=== PATIENT | male | born 1985 | race Caucasian/White ===

== ENCOUNTER 2016-09-27 20:52 | Emergency (ER) | payer OTHER ==
[~2016-09-27] VITALS: Ht 170.2 cm; Wt 78.0 kg
[~2016-09-27 20:52] MED LIST: METH10CO PO; MTR600 PO
[2016-09-27 21:11] VITALS: TEMP 36.9; Ht 170.2 cm; Wt 78.0 kg
[2016-09-27] MEDS ORDERED: ZNTT/150 PO (22:03)
[2016-09-27 22:11] VITALS: O2SAT 95
[2016-09-27] MEDS ORDERED: LORAZEPAM 2 MG/ML 1 ML VIAL IV STA (22:14)
--- NOTE | 2016-09-27 22:27 | DIAGNOSTIC IMAGING REPORT ---
CHEST ONE VIEW PORTABLE CLINICAL HISTORY: B11A - Abnormal EKG chest pain COMPARISON STUDY: 12/17/2015 FINDINGS: The bones soft tissues and hemidiaphragms are normal. The cardiomediastinal silhouette is normal. The lungs are clear. The pulmonary vasculature is normal. IMPRESSION: Negative chest. Electronically signed by: Moise Armendariz M.D. 09/27/2016 10:26 PM Dictated Date/Time: 09/27/2016 10:26 PM
[2016-09-27 22:53] LABS: HEMATOCRIT 38.7 % (42-52); MEAN CELL VOLUME 83.2 fL (80-100); MEAN CORPUSCULAR HEMOGLOBIN 29.5 pg (25-34); MEAN CORPUSCULAR HGB CONC 35.4 g/dl (32-36); MEAN PLATELET VOLUME 9.6 fL (7.4-10.4); PLATELET COUNT 177 K/uL (130-400); RED BLOOD COUNT 4.65 M/uL (4.7-6.1); WHITE BLOOD COUNT 6.18 K/uL (4.8-10.8)
[2016-09-27 23:03] LABS: INR 0.9 (0.9-1.1)
[2016-09-27 23:06] LABS: BUN/CREATININE RATIO 14.5 (10-20); CALCIUM 8.4 mg/dl (8.5-10.1); CREATININE 0.89 mg/dl (0.60-1.40); POTASSIUM 3.8 mmol/L (3.5-5.1)
[2016-09-27 23:11] LABS: ALB/GLOB RATIO 1.5 (0.9-2)
[2016-09-28] MEDS ORDERED: ATIVAN 1MG HOMEPACK PO ONE (01:00)
[2016-09-28 01:13] VITALS: BP 119/71; PULSE 73; O2SAT 97
--- NOTE | 2016-09-28 05:52 | EMERGENCY ROOM VISIT NOTE ---
History First contact with patient: 22:10 Chief Complaint: ABNORMAL DIAGNOSTIC TESTING Stated Complaint: ABNORMAL EKG- PHYSICIAN REFERRED History of Present Illness The patient is a 31 year old male who presents to the Emergency Room with complaints of chest discomfort for the past several days who was seen yesterday by the family care doctor and advised to go the ER as EKG was abnormal. Patient states she's been very poor stress lately. He also feels anxious. He describes the pain as pressure, 3 out of 10. Nothing makes it better or worse. No family history of heart disease. Patient denies dyspnea, fever, chills, cough, congestion, abdominal pain, leg pain or swelling, radiating pain, diaphoresis, jaw pain, neck pain, recent travel, lightheadedness or dizziness. No family history of heart disease. He does not smoke. Review of Systems See HPI for pertinent positives & negatives. A total of 10 systems reviewed and were otherwise negative. Past Medical/Surgical History Medical Problems: (1) Chronic back pain Surgical Problems: (1) History of appendectomy Family History Patient reports no known family medical history. Social History Smoking Status: Current Every Day Smoker Alcohol Use: occasionally Drug Use: none Marital Status: in relationship Occupation Status: employed Current/Historical Medications Scheduled Methadone Hcl (Methadone Hcl Intensol), 63-68 ML PO QAM Ranitidine (Zantac), 150 MG PO DAILY Allergies Coded Allergies: No Known Allergies (Unverified , 09/27/16) Physical Exam Vital Signs Date Time Temp Pulse Resp B/P Pulse Ox O2 Delivery O2 Flow Rate FiO2 09/28/16 01:13 73 14 119/71 97 09/27/16 23:30 61 17 127/81 96 Room Air 09/27/16 22:16 63 09/27/16 22:11 75 18 133/91 95 Room Air 09/27/16 22:11 95 Room Air 09/27/16 21:11 36.9 75 18 133/91 95 Room Air Pain Rating (0-10): 0 Physical Exam VITALS: Vitals are noted on the nurse's note and reviewed by myself. Vital signs stable. GENERAL: Pleasant male anxious-appearing, in no acute distress, nondiaphoretic, well-developed well-nourished. SKIN: The skin was without rashes, erythema, edema, or bruising. There is no tenting of the skin. Capillary reflex less than 2 seconds. HEAD: Normocephalic atraumatic. EARS: External auditory canals clear, tympanic membranes pearly garces without erythema or effusion bilaterally. EYES: Pupils equal round and reactive to light and accommodation. Conjunctivae without injection, sclerae without icterus. Extraocular movements intact. NOSE: Patent, turbinates without inflammation or discharge. MOUTH: Mucous membranes moist. Pharynx without erythema or exudate. Uvula midline. Airway patent. Tongue does not deviate. NECK: Supple without nuchal rigidity. No lymphadenopathy. No thyromegaly. Cervical spine is nontender. No JVD. HEART: Regular rate and rhythm without murmurs gallops or rubs. Chest nontender to palpation LUNGS: Clear to auscultation bilaterally without wheezes, rales or rhonchi. No dullness to percussion. No retractions or accessory muscle use. ABDOMEN: Positive bowel sounds x 4. Normal tympanic percussion. Soft, nontender, without masses or organomegaly. Foss sign negative. No guarding or rebound tenderness. MUSCULOSKELETAL: No muscle atrophy, erythema, or edema noted. NEURO: Patient was alert and oriented to person place and time. Normal sensation to light and sharp touch. No focal neurological deficits. Medical Decision & Procedures Laboratory Results 09/27/16 21:57 09/27/16 21:57 Test 09/27/16 21:57 09/27/16 22:13 Red Blood Count 4.65 M/uL (4.7-6.1) Mean Corpuscular Volume 83.2 fL (80-100) Mean Corpuscular Hemoglobin 29.5 pg (25-34) Mean Corpuscular Hemoglobin Concent 35.4 g/dl (32-36) RDW Standard Deviation 37.0 fL (36.4-46.3) RDW Coefficient of Variation 12.3 % (11.5-14.5) Mean Platelet Volume 9.6 fL (7.4-10.4) Prothrombin Time 10.0 SECONDS (9.0-12.0) Prothromb Time International Ratio 0.9 (0.9-1.1) Activated Partial Thromboplast Time 25.9 SECONDS (21.0-31.0) Partial Thromboplastin Ratio 1.0 D-Dimer < 190 ug/L FEU (0-500) Anion Gap 8.0 mmol/L (3-11) Est Creatinine Clear Calc Drug Dose 113.5 ml/min Estimated GFR () 133.0 Estimated GFR (Non- 114.7 BUN/Creatinine Ratio 14.5 (10-20) Calcium Level 8.4 mg/dl (8.5-10.1) Total Bilirubin 0.2 mg/dl (0.2-1) Aspartate Amino Transf (AST/SGOT) 32 U/L (15-37) Alanine Aminotransferase (ALT/SGPT) 39 U/L (12-78) Alkaline Phosphatase 76 U/L (45-117) Total Creatine Kinase 60 U/L (39-308) Creatine Kinase MB 0.6 ng/ml (0.5-3.6) Creatine Kinase MB Ratio 1.0 (0-3.0) Total Protein 6.6 gm/dl (6.4-8.2) Albumin 4.0 gm/dl (3.4-5.0) Globulin 2.6 gm/dl (2.5-4.0) Albumin/Globulin Ratio 1.5 (0.9-2) Bedside Troponin I 0.000 ng/ml (0-0.045) Medications Administered Medications (Trade) Dose Ordered Sig/Nicole Route Start Time Stop Time Status Last Admin Dose Admin Lorazepam (Ativan Inj) 1 mg NOW STAT IV 09/27/16 22:14 09/27/16 22:16 DC 09/27/16 22:45 1 MG Lorazepam (Ativan 1MG Home Pack) 1 homepack UD ONCE PO 09/28/16 01:00 09/28/16 01:01 DC 09/28/16 01:08 1 HOMEPACK ED Course Prior records/ancillary studies reviewed. Triage Nursing notes reviewed. Additional history obtained from family. The patient's history was concerning for chest pain. Differential diagnosis: Etiologies such as cardiac ischemia, aortic dissection, pulmonary embolism, pneumonia, pneumothorax, musculoskeletal, infections, pericarditis, myocarditis , esophageal rupture, gastrointestinal, as well as others were entertained. Physical examination: As above. ER treatment provided: Ativan On reassessment the patient felt better. Diagnostic interpretation by me: The electrocardiogram was negative for pathologic change. Normal sinus, normal intervals, no acute ST-T wave changes, impression normal sinus rhythm interpreted by myself The labs revealed negative times. Negative d-dimer Imaging studies: Chest x-ray as aboveCHEST ONE VIEW PORTABLE CLINICAL HISTORY: B11A - Abnormal EKG chest pain COMPARISON STUDY: 12/17/2015 FINDINGS: The bones soft tissues and hemidiaphragms are normal. The cardiomediastinal silhouette is normal. The lungs are clear. The pulmonary vasculature is normal. IMPRESSION: Negative chest. Electronically signed by: Moise Armendariz M.D. Exam and history seem consistent with chest pain that is most likely related to anxiety. Patient felt much better after being medicated as above. He is requesting to leave. I felt this reason we'll. He's had several days of the symptoms that are non-exertional. He had a normal EKG. He had a negative d- dimer. He is advised follow-up family medicine in a few days or here in the ER sooner for chest pain, difficulty breathing, diaphoresis, worsening signs or symptoms or as needed. By the evaluation outlined above emergent etiologies such as cardiac ischemia, aortic dissection, pulmonary embolism, pneumonia, pneumothorax, infections, pericarditis, myocarditis, gastrointestinal, as well as others were deemed relatively unlikely. The pt informed about the findings as listed above. All questions were answered and pleased with the treatment. Return instructions were outlined and the patient was discharged in stable condition. Outpatient prescription management: Ativan Referral: The patient was referred back to primary care physician for follow-up in 2 to 3 days for a recheck of the current condition. Case reviewed by attending Medical Decision As above Impression Primary Impression: Precordial chest pain Departure Information Dispostion Home / Self-Care Condition GOOD Forms WORK / SCHOOL INSTRUCTIONS, HOME CARE DOCUMENTATION FORM, IMPORTANT VISIT INFORMATION Patient Instructions Chest Pain - [facility], Anxiety Body Response, [facility] Additional Instructions DO NOT drive, drink alcohol, operate machinery, or perform dangerous activities today. You were given medications in the ER that can affect your ability to safely function or operate a vehicle. Ativan 1 m tablet every 8 hours as needed for anxiety. No alcohol or driving on this medication. Ibuprofen(Motrin, Advil) may be used for fever or pain. Use 600mg every six hours as needed. Take with food. Avoid using more than 2400mg in a 24 hour period. Do not use 2400mg per day for more than three consecutive days without physician direction. Prolonged inappropriate use can lead to stomach upset or ulcers. (AND/OR) Acetaminophen(Tylenol) may be used for fever or pain. Use 1000mg every six hours as needed. Avoid using more than 3000mg in a 24 hour period. Rest and drink plenty of fluids as tolerated. Continue current medications. Avoid strenuous activities and anything that worsens your pain. Resume normal activities once your symptoms resolve. Return to the ER immediately for worsening or persistent chest pain, abdominal pain, vomiting, fevers, chest pains, difficulty breathing, worsening of your condition, or as needed. Follow up with your primary physician in 2-3 days for a recheck of your current condition.
== END 2016-09-28 01:16 | disposition home or self-care (01) ==
LOC: C.EDB 20:53
DX: R07.2 Precordial pain (principal); G89.29 Other chronic pain; M54.9 Dorsalgia, unspecified; F17.200 Nicotine dependence, unspecified, uncomplicated; Z98.890 Other specified postprocedural states

== ENCOUNTER 2017-08-18 11:33 | Emergency (ER) | payer OTHER ==
[~2017-08-18] VITALS: Ht 167.6 cm; Wt 92.0 kg
[~2017-08-18 11:33] MED LIST changes: -MTR600 PO; +ZNTT/150 PO
[2017-08-18 11:54] VITALS: BP 161/99; PULSE 88; TEMP 37; O2SAT 95; Ht 167.6 cm; Wt 92.0 kg
--- NOTE | 2017-08-18 12:22 | EMERGENCY ROOM VISIT NOTE ---
ED Visit Note First contact with patient: 12:10 CHIEF COMPLAINT: Left upper molar tooth pain HISTORY OF PRESENT ILLNESS: This 31-year-old male presents the ER with chief complaint of progressive left upper molar tooth pain. The patient states that a portion of it broke off approximately a month ago and at first it was not painful but over the past several days it has been very painful especially with eating and at night when he tries to sleep. The patient has been taking Motrin 2 tablets just twice a day for the pain. He states he called a dentist and has an appointment in 2 weeks although he cannot tell me the name of the dentist. He also states that he had amoxicillin at home which he took 3 tablets yesterday. REVIEW OF SYSTEMS: 6 system review was performed and was negative unless stated otherwise in history of present illness. PMH: The patient is healthy; see chronic problem list SOCIAL HISTORY: Patient admits to tobacco use but denies any alcohol use. PHYSICAL EXAM: Vital Signs: Were reviewed Reviewed Nurse's notes. GEN.: 31-year -old white male appears in no acute distress. MENTAL Status: Alert and oriented 3. MOUTH: Left upper molar with diffuse decay any portion of it missing. Surrounding gingiva without erythema or palpable abscess. FACE: No facial swelling or erythema noted. NECK: Supple, no lymphadenopathy noted EMERGENCY COURSE: The patient was evaluated. The patient was given dental wax to use as directed. The patient was discharged home in stable condition. DIAGNOSIS: Dental caries and dentalgia DISCHARGE INSTRUCTIONS & TREATMENT: Ibuprofen 800 mg every 6 hours with food for pain. Take amoxicillin as prescribed. Use dental wax as directed. Keep scheduled appointment with your dentist for definitive care. Problem List Medical Problems: (1) Chronic back pain Status: Chronic Surgical Problems: (1) History of appendectomy Status: Chronic Current/Historical Medications Scheduled Methadone Hcl (Methadone Hcl Intensol), 63-68 ML PO QAM Ranitidine (Zantac), 150 MG PO DAILY Allergies Coded Allergies: No Known Allergies (Unverified , 09/27/16) Vital Signs Date Time Temp Pulse Resp B/P (MAP) Pulse Ox O2 Delivery O2 Flow Rate FiO2 08/18/17 11:54 37.0 88 18 161/99 95 Room Air Departure Information Referrals Moise Vazquez M.D. (PCP) Patient Instructions [facility]
[2017-08-18] MEDS ORDERED: AMOX500C3 PO (12:23)
== END 2017-08-18 12:39 | disposition home or self-care (01) ==
LOC: C.EDB 11:35 → C.EDD 12:39
DX: K08.89 Other specified disorders of teeth and supporting structures (principal); K02.9 Dental caries, unspecified; Z90.89 Acquired absence of other organs; Z72.0 Tobacco use

== ENCOUNTER 2017-11-17 16:37 | Emergency (ER) | payer OTHER ==
[~2017-11-17] VITALS: Ht 170.2 cm; Wt 91.9 kg
[2017-11-17 16:42] VITALS: TEMP 36.7; Ht 170.2 cm; Wt 91.9 kg
[2017-11-17] MEDS ORDERED: CLINDAMYCIN HCL 150 MG CAP PO STA ×2 (17:22)
[2017-11-17] MEDS ORDERED: EMPTY 8 DRAM VIAL ONE (17:35)
--- NOTE | 2017-11-17 17:45 | EMERGENCY ROOM VISIT NOTE ---
ED Visit Note First contact with patient: 16:52 CHIEF COMPLAINT: Eye infection HISTORY OF PRESENT ILLNESS: This 32-year-old male patient presents to the emergency department, ambulatory, complaining of the left eye infection. The patient states he was seen by his PCP twice last week for IM injections of antibiotics due to the infection. He occasionally complains of periorbital edema and redness, however the edema and redness lasts only several hours and improves with warm compresses and massages. The symptoms improved on IM antibiotics, however the patient states "I forgot to mushroom picker the antibiotics from my doctor." He states he was told his tear duct is occluded and was advised to come to the ED for worsening pain, swelling, or symptoms which do not improve. The patient does not have an cadd instructor or appointment. He has not followed up with his PCP. He denies fever, chills, nausea, vomiting, body aches, drainage, redness or swelling which does not improve, or other concerning symptoms. He has no history of similar disease. The patient sees Dr. Vazquez in [place]. REVIEW OF SYSTEMS: A 10 system review of systems was performed with positives and pertinent negatives listed in the history of present illness. All other systems were reviewed and are negative. ALLERGIES: None MEDICATIONS: None PMH: None SOCIAL HISTORY: Patient lives locally with family. He denies drug, alcohol use. He admits to smoking 1 pack of cigarettes per day. PHYSICAL EXAM: VITALS: Vitals are noted on the nurse's note and reviewed by myself. Vital signs stable. GENERAL: This is a 32 year old white male, in no acute distress, nondiaphoretic , well-developed well-nourished. SKIN: The skin was without rashes, erythema, edema, or bruising. There is no tenting of the skin. Capillary reflex less than 2 seconds. HEAD: Normocephalic atraumatic. EARS: External auditory canals clear, tympanic membranes pearly garces without erythema or effusion bilaterally. EYES: Small, mobile mass on the medial canthus, at the lacrimal gland. There is no erythema, drainage, swelling noted. Pupils equal round and reactive to light and accommodation. Conjunctivae without injection, sclerae without icterus. Extraocular movements intact. No periorbital edema or erythema noted. NOSE: Patent, turbinates without inflammation or discharge. No sinus tenderness. MOUTH: Mucous membranes moist. Tonsils are not enlarged. Pharynx without erythema or exudate. Uvula midline. Airway patent. Tongue does not deviate. NECK: Supple without nuchal rigidity. No lymphadenopathy. No thyromegaly. Cervical spine is nontender. No JVD. HEART: Regular rate and rhythm without murmurs gallops or rubs. LUNGS: Clear to auscultation bilaterally without wheezes, rales or rhonchi. No dullness to percussion. No retractions or accessory muscle use. MUSCULOSKELETAL: No muscle atrophy, erythema, or edema noted. Full range of motion without joint tenderness in all extremities. No tenderness to palpation. Normal gait. Strength 5/5 throughout. NEURO: Patient was alert and oriented to person place and time. No focal neurological deficits. EMERGENCY DEPARTMENT COURSE: The patient was seen and evaluated as above. I reviewed his medical records from his most recent office visit. He was prescribed clindamycin for dacryocystitis and was given Rocephin injections at the office. The patient states he has not picked up the antibiotic. I discussed with him that the symptoms will likely not improved without antibiotic treatment, and strongly encouraged to mushroom picker the antibiotic. He was given his first dose of clindamycin here in the emergency department. I offered a home pack for the medication, as the patient states his pharmacy was closed on his way to the emergency department. Upon further review, the patient 's pharmacy will remain open for another 45 minutes after he leaves here. He declines a home pack, and states they will go to the pharmacy directly from the emergency department to mushroom picker the medication. Discharge instructions reviewed , the patient is encouraged to follow-up outpatient with ophthalmology. He verbalized understanding. The patient was discharged home in good condition. I attest that I have personally reviewed the patient's current medication list. Patient was found to have normal blood pressure on screening and does not require follow-up. Etiologies such as dacryocystitis, conjunctivitis, corneal abrasion, uveitis, glaucoma, periorbital cellulitis, orbital cellulitis, abscess, trauma, as well as others were entertained. DIAGNOSIS: Dacryocystitis The chart was completed utilizing [employer] voice recognition software. Grammatical errors, random word insertions, pronoun errors, and incomplete sentences are an occasional consequence of this system due to software limitations, ambient noise, and hardware issues. Any formal questions or concerns about the content, text, or information contained within the body of this dictation should be directly addressed to the provider for clarification. Problem List Medical Problems: (1) Chronic back pain Status: Chronic Surgical Problems: (1) History of appendectomy Status: Chronic Current/Historical Medications No Active Prescriptions or Reported Meds Allergies Coded Allergies: No Known Allergies (Unverified , 08/18/17) Vital Signs Date Time Temp Pulse Resp B/P (MAP) Pulse Ox O2 Delivery O2 Flow Rate FiO2 11/17/17 17:50 62 20 115/76 98 Room Air 11/17/17 16:42 36.7 59 20 137/93 98 Room Air Medications Administered Medications (Trade) Dose Ordered Sig/Nicole Route Start Time Stop Time Status Last Admin Dose Admin Clindamycin HCl (Cleocin Cap) 300 mg ONE STAT PO 11/17/17 17:22 11/17/17 17:26 DC 11/17/17 17:22 300 MG Departure Information Impression Primary Impression: Dacryocystitis Dispostion Home / Self-Care Condition GOOD Prescriptions No Active Prescriptions or Reported Meds Referrals Moise Vazquez M.D. (PCP) Jose Alonzo D.O. Patient Instructions [facility] Additional Instructions You were seen in the emergency department today for a blocked tear duct causing an infection. You MUST mushroom picker clindamycin prescribed by your PCP and take this medication as directed. Ibuprofen(Motrin, Advil) may be used for fever or pain. Use 600mg every six hours as needed. Take with food. Avoid using more than 2400mg in a 24 hour period. Do not use 2400mg per day for more than three consecutive days without physician direction. Prolonged inappropriate use can lead to stomach upset or ulcers. (AND/OR) Acetaminophen(Tylenol) may be used for fever or pain. Use 1000mg every six hours as needed. Avoid using more than 3000mg in a 24 hour period. Use warm, moist compresses and gentle massage to help with the discomfort and to help with drainage. Use artificial tears to keep the eye moist. Follow-up with cadd instructor within 1 week for re-check. Return to the emergency department for any significantly worsening redness which does not improve, swelling, visual changes, purulent drainage, fever, or other systemic symptoms. Problem Qualifiers Primary Impression: Dacryocystitis Laterality: left Qualified Codes: H04.302 - Unspecified dacryocystitis of left lacrimal passage
[2017-11-17 17:50] VITALS: BP 115/76; PULSE 62; O2SAT 98
== END 2017-11-17 17:57 | disposition home or self-care (01) ==
LOC: C.EDB 16:37 → C.EDD 17:57
DX: H04.302 Unspecified dacryocystitis of left lacrimal passage (principal)

== ENCOUNTER 2018-02-26 13:55 | Emergency (ER) | payer SELFPAY ==
[~2018-02-26] VITALS: Ht 167.6 cm; Wt 89.7 kg
[2018-02-26 13:57] VITALS: TEMP 36.6; Ht 167.6 cm; Wt 89.7 kg
[2018-02-26] MEDS ORDERED: ALBUT/IPRATROP 3MG/0.5MG NEB 3 ML VIAL INH STA (14:10)
[2018-02-26] MEDS ORDERED: KETOROLAC TROMETHAMINE 30 MG/ML VIAL IV STA (14:10)
[2018-02-26 14:34] VITALS: O2SAT 91
[2018-02-26 14:54] LABS: BASO % 0.3 %; BASO ABS # 0.02 K/uL (0-0.2); EOS % 3.6 %; EOS ABS # 0.23 K/uL (0-0.5); HEMOGLOBIN 13.9 g/dL (14.0-18.0); IG# 0.01 K/uL (0.00-0.02); LYMPH % 27.9 %; LYMPH ABS # 1.76 K/uL (1.2-3.4); MEAN CELL VOLUME 82.3 fL (80-100); MEAN CORPUSCULAR HEMOGLOBIN 28.6 pg (25-34); MEAN CORPUSCULAR HGB CONC 34.8 g/dl (32-36); MEAN PLATELET VOLUME 9.9 fL (7.4-10.4); MONO % 5.7 %; MONO ABS # 0.36 K/uL (0.11-0.59); NEUT % 62.3 %; NEUT ABS # 3.93 K/uL (1.4-6.5); PLATELET COUNT 146 K/uL (130-400); RED CELL DISTRIBUTION WIDTH CV 12.4 % (11.5-14.5); RED CELL DISTRIBUTION WIDTH SD 37.4 fL (36.4-46.3); WHITE BLOOD COUNT 6.31 K/uL (4.8-10.8)
[2018-02-26 15:02] LABS: PTT PATIENT 24.4 SECONDS (21.0-31.0)
--- NOTE | 2018-02-26 15:07 | DIAGNOSTIC IMAGING REPORT ---
CHEST 2 VIEWS ROUTINE HISTORY: Atypical chest pain. COMPARISON: Chest 09/27/2016. FINDINGS: The lungs are clear. Cardiac silhouette is normal in size. No pleural effusions. No pneumothorax. IMPRESSION: No acute process. Electronically signed by: Hussein Byrd M.D. 02/26/2018 3:05 PM Dictated Date/Time: 02/26/2018 3:03 PM
[2018-02-26 15:20] LABS: CALCIUM 8.8 mg/dl (8.5-10.1); CREATININE 0.98 mg/dl (0.60-1.40); POTASSIUM 4.1 mmol/L (3.5-5.1)
[2018-02-26 16:17] VITALS: BP 105/76; PULSE 67; O2SAT 94
--- NOTE | 2018-02-26 20:47 | EMERGENCY ROOM VISIT NOTE ---
History Report prepared by Elyssa: Vj Osborne Under the Supervision of: Dr. Rosalio Watts M.D. First contact with patient: 14:00 Chief Complaint: CHEST PAIN Stated Complaint: CHEST PAINS History of Present Illness The patient is a 32 year old male who presents to the Emergency Room with complaints of constant pain in the center of his chest beginning this morning at about 09:00. He states that he was told by co-workers at this time that he appeared pale. He denies any trauma or injuries, but states that he feels like he was punched. He reports that his pain is not improving, and notes that the pain is worsened with breathing, moving certain ways, or lifting objects. He states initially when he first noticed the pain he had significant redness to the area. The redness is now gone. The patient denies fevers, abdominal pain, or swelling and pain to his legs. He notes a cough, but states that he smokes 8- 10 cigarettes per day. He states that he had his appendix removed, but denies other significant medical history. The patient reports that he drove himself to the ER. Source of History: patient Onset: this morning at 09:00 Position: chest (center) Timing: constant Modifying Factors (Worsening): breathing, movement (quick), other (lifting) Associated Symptoms: + cough, No fevers, No abdominal pain Note: denies trauma or injuries denies swelling or pain to the legs Review of Systems See HPI for pertinent positives & negatives. A total of 10 systems reviewed and were otherwise negative. Past Medical & Surgical Medical Problems: (1) Chronic back pain Surgical Problems: (1) History of appendectomy Family History Patient reports no known family medical history. Social History Smoking Status: Current Every Day Smoker Alcohol Use: occasionally Drug Use: none Marital Status: in relationship Occupation Status: employed Current/Historical Medications No Active Prescriptions or Reported Meds Allergies Coded Allergies: POLLEN (Unverified Allergy, Intermediate, ., 02/26/18) Physical Exam Vital Signs Date Time Temp Pulse Resp B/P (MAP) Pulse Ox O2 Delivery O2 Flow Rate FiO2 02/26/18 16:17 67 15 105/76 94 02/26/18 15:21 56 106/65 92 Room Air 02/26/18 14:39 59 02/26/18 14:34 91 Room Air 02/26/18 14:23 Room Air 02/26/18 13:57 36.6 76 18 126/63 95 Room Air Physical Exam Constitutional: Vital signs reviewed. Eyes: Pupils are equal round reactive to light. Conjunctiva are noninjected. ENT: Pharynx is clear without erythema or exudate. Mucous membranes are moist. Neck supple without meningeal signs. Respiratory: Breath sounds are equal bilaterally. Bilateral wheezing noted. Cardiovascular: Regular rate and rhythm. No rubs or gallops. GI: Soft, nondistended and nontender. Bowel sounds are present. Musculoskeletal: No peripheral edema. No lower extremity tenderness. Reproducible chest wall tenderness to light palpation over the sternum. No erythema, increased warmth, or crepitus Integumentary: No cyanosis. Neurological: The patient is awake and alert. No focal deficits. Psychiatric: Normal affect. Medical Decision & Procedures ER Provider Diagnostic Interpretation: Radiology results as stated below per my review and the radiologist's interpretation: CHEST 2 VIEWS ROUTINE HISTORY: Atypical chest pain. COMPARISON: Chest 09/27/2016. FINDINGS: The lungs are clear. Cardiac silhouette is normal in size. No pleural effusions. No pneumothorax. IMPRESSION: No acute process. Electronically signed by: Hussein Byrd M.D. 02/26/2018 3:05 PM Dictated Date/Time: 02/26/2018 3:03 PM Laboratory Results 02/26/18 14:35 Red Blood Count 4.86, Mean Corpuscular Volume 82.3, Mean Corpuscular Hemoglobin 28.6, Mean Corpuscular Hemoglobin Concent 34.8, Mean Platelet Volume 9.9, Neutrophils (%) (Auto) 62.3, Lymphocytes (%) (Auto) 27.9, Monocytes (%) (Auto) 5.7, Eosinophils (%) (Auto) 3.6, Basophils (%) (Auto) 0.3, Neutrophils # (Auto) 3.93, Lymphocytes # (Auto) 1.76, Monocytes # (Auto) 0.36, Eosinophils # (Auto) 0.23, Basophils # (Auto) 0.02 02/26/18 14:35 Test 02/26/18 14:35 02/26/18 14:48 White Blood Count 6.31 K/uL (4.8-10.8) Red Blood Count 4.86 M/uL (4.7-6.1) Hemoglobin 13.9 g/dL (14.0-18.0) Hematocrit 40.0 % (42-52) Mean Corpuscular Volume 82.3 fL (80-100) Mean Corpuscular Hemoglobin 28.6 pg (25-34) Mean Corpuscular Hemoglobin Concent 34.8 g/dl (32-36) Platelet Count 146 K/uL (130-400) Mean Platelet Volume 9.9 fL (7.4-10.4) Neutrophils (%) (Auto) 62.3 % Lymphocytes (%) (Auto) 27.9 % Monocytes (%) (Auto) 5.7 % Eosinophils (%) (Auto) 3.6 % Basophils (%) (Auto) 0.3 % Neutrophils # (Auto) 3.93 K/uL (1.4-6.5) Lymphocytes # (Auto) 1.76 K/uL (1.2-3.4) Monocytes # (Auto) 0.36 K/uL (0.11-0.59) Eosinophils # (Auto) 0.23 K/uL (0-0.5) Basophils # (Auto) 0.02 K/uL (0-0.2) RDW Standard Deviation 37.4 fL (36.4-46.3) RDW Coefficient of Variation 12.4 % (11.5-14.5) Immature Granulocyte % (Auto) 0.2 % Immature Granulocyte # (Auto) 0.01 K/uL (0.00-0.02) Prothrombin Time 10.0 SECONDS (9.0-12.0) Prothromb Time International Ratio 1.0 (0.9-1.1) Activated Partial Thromboplast Time 24.4 SECONDS (21.0-31.0) Partial Thromboplastin Ratio 0.9 Anion Gap 6.0 mmol/L (3-11) Est Creatinine Clear Calc Drug Dose 114.5 ml/min Estimated GFR () 118.6 Estimated GFR (Non- 102.3 BUN/Creatinine Ratio 12.1 (10-20) Calcium Level 8.8 mg/dl (8.5-10.1) Bedside Troponin I < 0.030 ng/ml (0-0.045) Troponin level of .243 Laboratory results as reviewed by me. Medications Administered Medications (Trade) Dose Ordered Sig/Nicole Route Start Time Stop Time Status Last Admin Dose Admin Albuterol/ Ipratropium (Duoneb) 3 ml NOW STAT INH 02/26/18 14:10 02/26/18 14:12 DC 02/26/18 14:36 3 ML Ketorolac Tromethamine (Toradol Inj) 10 mg NOW STAT IV 02/26/18 14:10 02/26/18 14:12 DC 02/26/18 14:36 10 MG ECG Per My Interpretation Indication: chest pain Rate (beats per minute): 68 Rhythm: normal sinus Findings: other (No ST elevation. No PVCs.) ED Course 1403: The patient was evaluated in room C12B. A complete history and physical exam was performed. 1410: Ordered Toradol 10 mg IV, Duoneb 3 ml INH 1529: I discussed the test results with the patient and his significant other. He verbalized agreement of the treatment plan. The patient was discharged home. Medical Decision This is a 32-year-old male who presents with chest pain. Differential diagnosis includes costochondritis, musculoskeletal pain, pleurisy, pericarditis , pulmonary embolism, aortic dissection or aneurysm. I did perform a limited focused review of portions of the patient's old chart on the electronic medical record. The patient has had no recent pertinent visits to this hospital. I did evaluate the patient as noted above. The patient is presenting with very reproducible chest wall tenderness over the sternum. He has no erythema there but he stated that he had erythema when he first noticed it. This seems to suggest some type of injury but he denies any recollection of any injury. He does state it is worse when he takes deep breath or moves his torso in a certain way or lifts heavy objects. IV access was established. The patient was placed on a continuous radiographer cardiac catheterization. I did treat patient with Toradol 10 mg IV. He is wheezing on exam and so he was given does smoke half a pack a day. I did order and personally review the patient's 12-lead EKG and chest x- ray as described above. His twelve-lead EKG does not show evidence of pericarditis or acute ischemia. His chest x-ray does not show any pneumothorax or acute abnormality. There is no widening of the mediastinum. I did order and review the patient's blood work as noted in the electronic medical record. Troponin is negative. D-dimer is negative. His white blood cell count is not elevated. I did reassess the patient. I did discuss the test results with the patient and his significant other. At this time his symptoms seem to be likely musculoskeletal. He was advised, however, to follow closely with his doctor. He was discharged in good condition and advised to use NSAIDs. Medication Reconcilliation Current Medication List: was personally reviewed by me Blood Pressure Screening Patient's blood pressure: Normal blood pressure Blood pressure disposition: Did not require urgent referral Impression Primary Impression: Acute chest pain Additional Impression: Bronchitis Scribe Attestation The scribe's documentation has been prepared under my direct and personally reviewed by me in its entirety. I confirm that the note above accurately reflects all work, treatment, procedures, and medical decision making performed by me. Departure Information Dispostion Home / Self-Care Prescriptions No Active Prescriptions or Reported Meds Referrals Moise Vazquez M.D. (PCP) Forms Call Back Authorization, HOME CARE DOCUMENTATION FORM, IMPORTANT VISIT INFORMATION Patient Instructions My [facility] Additional Instructions You have been examined and treated today on an emergency basis only. This is not a substitute for, or an effort to provide, complete comprehensive medical care. It is impossible to recognize and treat all injuries or illnesses in a single emergency department visit. It is therefore important that you follow up closely with your physician. Call as soon as possible for an appointment. Return for worsening symptoms or if you develop fever, vomiting, recurrent redness to the area, shortness of breath or any other concerning symptoms. Problem Qualifiers
== END 2018-02-26 16:18 | disposition home or self-care (01) ==
LOC: C.EDB 13:57 → C.EDC 16:18
DX: R07.9 Chest pain, unspecified (principal); J40 Bronchitis, not specified as acute or chronic; F17.200 Nicotine dependence, unspecified, uncomplicated; Z91.09 Other allergy status, other than to drugs and biological substances